=== PATIENT | male | born 1985 | race Caucasian/White ===

== ENCOUNTER 2018-12-21 17:02 | Emergency (ER) | payer OTHER ==
[~2018-12-21] VITALS: Ht 170.2 cm; Wt 54.4 kg
== END 2018-12-21 18:42 | disposition home or self-care (01) ==
LOC: ER 17:02
DX: K60.0 Acute anal fissure (principal); K62.5 Hemorrhage of anus and rectum

== ENCOUNTER 2024-04-06 10:10 | Outpatient (CLI) | payer OTHER | END 2024-04-06 10:21 | disposition home or self-care (01) | LOC: SONOGRAMA 10:10 | PROVIDERS: ATTEND Obstetrics & Gynecology | DX: N64.4 Mastodynia (principal) ==